=== PATIENT | male | born 1975 | race Caucasian/White ===

== ENCOUNTER 2020-02-22 10:13 | Emergency (ER) | payer SELFPAY ==
[2020-02-22 10:21] VITALS: BP 142/98; PULSE 75; RESP 16; TEMP 36.8; O2SAT 98
--- NOTE | 2020-02-22 10:47 | ED.GENADUL_ITS ---
Discharge Plan Disposition Patient Disposition: HOME Condition: Stable Discharge Details Chief Complaint: Vascular Clinical Impression: Deep vein thrombosis of left lower extremity, Auditory hallucination Primary Care Provider: None,None ED Provider: Mary Max Home Meds and New Rx's Prescriptions: New olanzapine 5 mg tablet,disintegrating 5 mg PO BID PRN (Reason: psychosis) Qty: 10 RF: 0 Eliquis DVT-PE Treat 30D Start 5 mg (74 tabs) tablets,dose pack See Rx Instructions .ROUTE .COMPLEX Qty: 74 RF: 0 No Action albuterol sulfate 90 mcg/actuation Hfa Aerosol Inhaler 2 puff INHALATION Q4H PRNRF: 0 Discharge Instructions Instructions: Deep Vein Thrombosis (ED) Additional Instructions: Take the free 30-day trial offer for Eliquis to the pharmacy. You were given the first dose here. I am also giving you a prescription for the Zyprexa. Encourage you to follow-up as directed by [facility] human services and care management for housing availability and community resources. Follow up with primary care provider in 3-5 days. Return to ED sooner if any wo rsening or concerns. Increase oral fluids. Please take Tylenol or Ibuprofen with food every 4-6 hours as needed for pain and swelling. Return to the ED for any worsening chest pain, shortness of breath, fever, chills or any concerns. Discharge Data Discharge Date/Time-TO BE ENTERED AT DEPARTURE: 02/22/20 13:48 Medical Decision Making 44-year-old male presents to the ED with chief complaint of left leg cramping. Patient has been hiking and train hopping and was seen in [place] on February 05, 2020 and diagnosed with a left lower extremity DVT and prescribed apixaban which he reports that he had never taken. He was admitted for psych issues was prescribed olanzapine Zyprexa which he never filled. He reports that he j ust got out of retirement this morning for public alcohol intoxication. He does report hearing voices and he drowns amount of the alcohol, denies any suicidal ideation or homicidal ideation at this time. He is agreeable to mental health evaluation voluntarily because he reports I need my meds. He is a smoker and has a history of COPD. He also endorses marijuana use and alcohol abuse. He does have a nonproductive cough. He denies any hemoptysis or chest pain at this time. Patient is a homeless transient patient who is hiking through [facility]. He does have a history of alcoholism, left DVT, and possibly schizophrenia. Ultrasound of left lower extremity ordered to rule out DVT. 1126: Spoke with Francie with mental health psych liaison regarding patient she agrees to do mental health evaluation, at this time patient is voluntary nonsuicidal non-homicidal, he is calm and cooperative at this time. Care management notified regarding assistance with patient's for community resources. 1222: Francie Joaquin with [facility] is going to meet with care management to set up a follow-up appointment and discuss housing opportunities as patient reports to Francie that he will be staying around the area for a little bit. At this time ultrasound is pending. Patient remains alert and oriented, cooperative. 1236: Spoke with Dr. Huffman radiologist, there is a proximal DVT noted extending from the left iliac vein inferiorly to the proximal popliteal vein. There is a proximal posterior tibialis vein which is noncompressible as well there is no evidence of Davila's cyst. Left lower extremity venous Doppler. FINDINGS: Hypoechoic thrombus is seen extending from the left iliac vein to the proximal popliteal vein. One of the paired proximal posterior tibialis veins is noncompressible. There is no evidence of a Davila cyst. The soft tissues are unremarkable. IMPRESSION: Extensive DVT extending from the left iliac vein inferiorly to the proximal popliteal vein. The findings were discussed with the emergency department on the date of the examination. Due to patient's known history of DVT we will give an Eliquis 10 mg tablet p.o. in department here. Zyprexa 5 mg p.o. ordered, at this time care [facility] and [facility] human services are working on housing and follow-up appointment. Patient given free 30-day trial of Eliquis packet/coupon to take to the pharmacy. Discussed this with patient. Upon sheet metal worker apprentice instructions patient became very irate, yelling obscenities at staff, and upset he states you guys have been done a thing for me this is stupid I am not can do that I want a get out of here. Patient also refused rule care transport per Carlota with care management. Patient left department without discharge papers, prescriptions, or the free 30-day starter kit of Eliquis. HPI General Mode of arrival: ambulatory . Date/Time Provider Initiated Documentation: 02/22/20 10:16 . Limitations to Documentation: no limitations . Information obtained by: patient . HPI Narrative: 44-year-old male presents to the ED with chief complaint of left leg cramping. Patient has been hiking and train hopping and was seen in [place] on February 05, 2020 and diagnosed with a left lower extremity DVT and prescribed apixaban which he reports that he had never taken. He was admitted for psych issues was prescribed olanzapine Zyprexa which he never filled. He reports that he just got out of retirement this morning for public alcohol intoxication. He does report hearing voices and he drowns amount of the alcohol, denies any suicidal ideation or homicidal ideation at this time. He is agreeable to mental health evaluation voluntarily because he reports I need my meds. He is a smoker and has a history of COPD. He also endorses marijuana use and alcohol abuse. He does have a nonproductive cough. He denies any hemoptysis or chest pain at this time. Related Data Home Medications Medication Instructions Recorded Confirmed albuterol sulfate 2 puff INHALATION Q4H PRN 02/22/20 02/22/20 apixaban [Eliquis DVT-PE Treat 30D See Rx Instructions .ROUTE 02/22/20 Start] .COMPLEX #74 dose pk olanzapine 5 mg PO BID PRN #10 tab 02/22/20 Previous Rx's Medication Instructions Recorded apixaban [Eliquis DVT-PE Treat 30D See Rx Instructions .ROUTE 02/22/20 Start] .COMPLEX #74 dose pk olanzapine 5 mg PO BID PRN #10 tab 02/22/20 Allergies Allergy/AdvReac Type Severity Reaction Status Date / Time No Known Allergies Allergy Unverified 02/22/20 10:29 General Stated Complaint: Vascular OCTAVIO: 3 Review of Systems Narrative: Constitutional: Negative for weight loss, alert and oriented, disheveled, normal body habitus, appears comfortable. HEENT: Denies trauma, headaches, blurry vision, nasal discharge, sore throat, trouble swallowing. Chest: Denies chest pain, palpitations, irregular rhythm, hypertension. Respiratory: Denies hemoptysis. Mild shortness of breath and nonproductive cough. History of COPD and is a smoker. GI: Denies abdominal pain, nausea, vomiting, diarrhea, constipation. Musculoskeletal: Left lower extremity is mildly swollen, reports pain. History of DVT. Neuro: Denies dizziness, blurry vision, weakness, syncope, headache or facial numbness. Hematologic: Denies easy bruising, intolerance to heat or cold, hair loss. [facility] Medical History (Updated 02/22/20 @ 13:24 by Mary Max) Schizo affective schizophrenia (Acute) Social History Smoking/Tobacco Use Status: Current every day Drug use: Occasionally Substance use type: marijuana Details: 1/2 gallon vodka per day marijuana 1x/week Additional Social history: pt states he is a traveler hikes and train hops around the country Exam Narrative Exam Narrative: Constitutional: Alert and oriented x3. Appears stated age. Normal body habitus. Head: Normocephalic, no trauma. Eyes: Pupils PERRLA, Red reflex noted, EOM's intact. Eyelids symmetrical without lesions, discharge, or swelling. ENT: Bilateral TM's WNL, External ear normal to inspection, no mastoid TTP, swelling, or erythema, Nasal turbinates WNL, no nasal discharge. Normal dentition, Posterior pharynx WNL, no exudate. Chest: RRR, Normal S1, S2, distal pulses intact. Resp: Lungs no rales, or rhonchi. Scattered mild expiratory wheezes bilaterally. Musculoskeletal: Normal gait, 5/5 strength to all four extremities. Left lower extremity is swollen, non-erythemic, negative Homans sign. Skin: No suspicious rashes or lesions. Capillary refill less than 2 sec. Neurologic: Cranial nerves II-XII intact. Alert and oriented x 3. DTR's intact. Hematologic/Lymphatic: No ecchymosis, no lymphadenopathy. Course Vital Signs Vital signs: Vital Signs Temperature 36.8 C 02/22/20 10:21 Pulse 75 02/22/20 10:21 Respiratory Rate 16 02/22/20 10:21 Blood Pressure 142/98 H 02/22/20 10:21 Pulse Oximetry 98 02/22/20 10:21 Temperature 36.8 C 02/22/20 10:21 Pulse 75 02/22/20 10:21 Respiratory Rate 16 02/22/20 10:21 Respiratory Effort 02/22/20 10:30 Blood Pressure 142/98 H 02/22/20 10:21 Blood Pressure Position Sitting 02/22/20 10:21 Pulse Oximetry 98 02/22/20 10:21 Oxygen Delivery Method Room Air 02/22/20 10:21 Oxygen Flow Rate 0 02/22/20 10:21 Pain Level 6 02/22/20 10:21
--- NOTE | 2020-02-22 11:00 | DI.US_ITS ---
EXAM: US LOWER EXTREMITY VENOUS LT CLINICAL HISTORY: Hx of DVT, leg pain and swelling TECHNIQUE: Left lower extremity venous ultrasound performed using grayscale, color-flow, and spectra l Doppler analysis. COMPARISON: No exams were available for comparison FINDINGS: Hypoechoic thrombus is seen extending from the left iliac vein to the proximal popliteal vein. One o f the paired proximal posterior tibialis veins is noncompressible. There is no evidence of a Davila c yst. The soft tissues are unremarkable. IMPRESSION: Extensive DVT extending from the left iliac vein inferiorly to the proximal popliteal vein. The findings were discussed with the emergency department on the date of the examination. DATA REPOSITORY:
[2020-02-22] MEDS: OLANZapine 5 MG TAB PO (12:57)
[2020-02-22] MEDS: Apixaban 5 MG TAB 10 MG PO (12:57)
--- NOTE | 2020-02-22 13:53 | NUR.NOTE ---
patient departed angrily refusing d/c paperwork that included community resource information, prescription along with 30 day free trial of prescription. stated he was going to another hospital that would really help him.
--- NOTE | 2020-02-23 13:43 | PDOC.MHCN ---
Date of service: 02/22/20 Time of Service: 13:44 Mental Health Crisis Note Presenting Issue How did you arrive at the ED and why did you come: Earl walked to the ER from what he reported was the [place] [facility]. He reported he needed a blood clot in his leg to be checked and that he has a hx of schizoaffective d.o. Precipitating Factors Earl denied SI and HI. He did not appear to be having any delusions. Disposition BEHAVIOR: Earl was engaged and cooperative while he had an MRI of his leg. He is a transient so does not have insurance, electronics to connect with anyone or money. He reported long hx of MH issues that have come up over the past 20 years and when not treated he has either been hospitalized or put in [place] [facility]. EYE CONTACT: Eye contact appeared to be good but it was dark in the room as we spoke due to the procedure that was being done. MOOD: Mood is upbeat and possitive. AFFECT: Affect was hard to assess due to lighting and a mask. APPETITE: Earl reported appetite is not the best but is looking forward to a meal at the ER. SLEEP(trouble falling/staying asleep: earl reported that he has frequent nightmares. Plan Earl is interested in seeing a psychiatrist. This clinician was going to do an in-house referral however, there is no way to get in touch with him to set up appointments and it seemed that he did not accept the information about economic services and/or [facility] from the palliative care nurse so we would not even know where to find him. In addition, he got some medications according to the [employer] so it is likely he is traveling again. Referral will wait until Earl makes connections with us again.
== END 2020-02-22 13:48 | disposition home or self-care (01) ==
PROVIDERS: Emergency Provider Registered Nurse Emergency
DX: I82.412 Acute embolism and thrombosis of left femoral vein (principal); R44.0 Auditory hallucinations; Z59.0 Homelessness; Z91.14 Patient's other noncompliance with medication regimen; F20.9 Schizophrenia, unspecified; J44.9 Chronic obstructive pulmonary disease, unspecified; F17.210 Nicotine dependence, cigarettes, uncomplicated; Z86.718 Personal history of other venous thrombosis and embolism; Z53.29 Procedure and treatment not carried out because of patient's decision for other reasons
CPT/HCPCS: 99284; 93971